=== PATIENT | female | born 1940 | race Caucasian/White ===

== ENCOUNTER 2016-05-15 20:00 | Emergency (ER) | payer OTHER ==
[2016-05-15 20:15] VITALS: BP 152/72; PULSE 100; TEMP 97.5; BMI 33.3
--- NOTE | 2016-05-15 20:22 | PDOC ---
[id number]: No Limitations - History of Present Illness Initial Comments: 05/15/16 21:00 The patient is a 76-year-old female (compliant with medications) with a significant past medical history of diabetes, hypertension, GERD, hypercholesterolemia, and presents to the emergency department with palpitations , abdominal bloating, and dizziness tonight. The patient reports her heart was racing (120 bpm). She reports abdominal bloating and a lot of gas retention. She reports episodes of dizziness since two days ago. Her last bowel movement occurred this morning. She states she is eating normally. The patient denies shortness of breath and headache. The patient denies fever, chills, abdominal pain, nausea, vomit, diarrhea and constipation. The patient denies dysuria, frequency, urgency and hematuria. Allergies: NKDA Social History: No toxic habits PCP: Dr. Abilio Navarrete <Ximena Mai - Last Filed: 05/15/16 21:00> <Marisa Ruiz - Last Filed: 05/16/16 01:58> - General Chief Complaint: Lightheaded Stated Complaint: CHEST PAIN Time Seen by Provider: 05/15/16 20:21 Past History <Ximena Mai - Last Filed: 05/15/16 21:00> - Past Medical History Anemia: No Asthma: No Cancer: No Cardiac Disorders: No CVA: No COPD: No CHF: No Diabetes: Yes GI Disorders: No Disorders: No HTN: Yes Hypercholesterolemia: Yes Liver Disease: No Seizures: No Thyroid Disease: Yes - Immunization History Immunization Up to Date: Yes - Psycho/Social/Smoking Cessation Hx Suicidal Ideation: No Smoking Status: No Smoking History: Never smoked Number of Cigarettes Smoked Daily: 0 Hx Alcohol Use: No Drug/Substance Use Hx: No Substance Use Type: None Hx Substance Use Treatment: No <Marisa Ruiz - Last Filed: 05/16/16 01:58> - Past Medical History Allergies/Adverse Reactions: Allergies Allergy/AdvReac Type Severity Reaction Status Date / Time No Known Allergies Allergy Verified 05/15/16 20:13 Home Medications: Ambulatory Orders Lubiprostone [Amitiza] 8 mcg PO DAILY #0 capsule 05/05/12 Methimazole 10 mg PO DAILY #0 tablet 05/05/12 Aspirin Coated [Ecotrin -] 81 mg PO ASDIR 01/15/16 Atorvastatin Ca [Lipitor] 20 mg PO HS 01/15/16 Canagliflozin [Invokana] 100 mg PO DAILY 01/15/16 Esomeprazole Magnesium [Nexium 24Hr] 40 mg PO DAILY 01/15/16 Insulin Glargine,Hum.rec.anlog [Bridget Murphy] 35 unit SQ AM 01/15/16 Review of Systems - Review of Systems Able to Perform ROS?: Yes Comments:: 05/15/16 21:01 CONSTITUTIONAL: Absent: fever, chills, diaphoresis, generalized weakness, malaise, loss of appetite HEENT: Absent: rhinorrhea, nasal congestion, throat pain, throat swelling, difficulty swallowing, mouth swelling, ear pain, eye pain, visual changes CARDIOVASCULAR: Present: (+) palpitations (+) dizziness Absent: chest pain, syncope, peripheral edema RESPIRATORY: Absent: cough, shortness of breath, dyspnea with exertion, orthopnea, wheezing, stridor, hemoptysis GASTROINTESTINAL: Present: (+) abdominal bloating Absent: abdominal pain, nausea, vomiting, diarrhea, constipation, melena, hematochezia GENITOURINARY: Absent: dysuria, frequency, urgency, hesitancy, hematuria, flank pain, genital pain MUSCULOSKELETAL: Absent: myalgia, arthralgia, joint swelling SKIN: Absent: rash, itching, pallor HEMATOLOGIC/IMMUNOLOGIC: Absent: easy bleeding, easy bruising, lymphadenopathy, frequent infections ENDOCRINE: Absent: unexplained weight gain, unexplained weight loss, heat intolerance, cold intolerance NEUROLOGIC: Absent: headache, focal weakness or paresthesias, unsteady gait, seizure, mental status changes, bladder or bowel incontinence PSYCHIATRIC: Absent: anxiety, depression, suicidal or homicidal ideation, hallucinations. <Ximena Mai - Last Filed: 05/15/16 21:00> *Physical Exam - Vital Signs Last Vital Signs Temp Pulse Resp BP Pulse Ox 97.5 F L 100 H 20 152/72 98 05/15/16 20:00 05/15/16 20:00 05/15/16 20:00 05/15/16 20:00 05/15/16 20:00 - Physical Exam Comments: 05/15/16 21:01 GENERAL: Well developed, well nourished. Awake and alert. No acute distress. HEENT: Normocephalic, atraumatic. PERRLA, EOMI. No conjunctival pallor. Sclera are non- icteric. Moist mucous membranes. Oropharynx is clear. NECK: Supple. Full ROM. No JVD. Carotid pulses 2+ and symmetric, without bruits. No thyromegaly. No lymphadenopathy. CARDIOVASCULAR: Regular rate and rhythm. No murmurs, rubs, or gallops. Distal pulses are 2+ and symmetric. PULMONARY: No evidence of respiratory distress. Lungs clear to auscultation bilaterally. No wheezing, rales or rhonchi. ABDOMINAL: (+) Belly is gassy. Soft. Non-tender. No rebound or guarding. No organomegaly. Normoactive bowel sounds. MUSCULOSKELETAL Normal range of motion at all joints. No bony deformities or tenderness. No CVA tenderness. EXTREMITIES: No cyanosis. No clubbing. No edema. No calf tenderness. SKIN: Warm and dry. Normal capillary refill. No rashes. No jaundice. NEUROLOGICAL: Alert, awake, appropriate. Cranial nerves 2-12 intact. No deficits to light touch and temperature in face, upper extremities and lower extremities. No motor deficits in the in face, upper extremities and lower extremities. Normoreflexic in the upper and lower extremities. Normal speech. Toes are down- going bilaterally. Gait is normal without ataxia. PSYCHIATRIC: Cooperative. Good eye contact. Appropriate mood and affect. <Ximena Mai - Last Filed: 05/15/16 21:00> - Vital Signs Last Vital Signs Temp Pulse Resp BP Pulse Ox 97.5 F L 100 H 20 152/72 98 05/15/16 20:00 05/15/16 20:00 05/15/16 20:00 05/15/16 20:00 05/15/16 20:00 <Marisa Ruiz - Last Filed: 05/16/16 01:58> ED Treatment Course - LABORATORY CBC & Chemistry Diagram: 05/15/16 20:30 05/15/16 20:30 - ADDITIONAL ORDERS Additional order review: Laboratory Results 05/15/16 20:30 INR 0.96 05/15/16 20:30 RBC 4.70 MCV 82.7 MCHC 33.3 RDW 13.7 MPV 8.4 Neutrophils % 60.8 D Lymphocytes % 29.6 D Monocytes % 7.1 Eosinophils % 1.5 Basophils % 1.0 - Medications Given in the ED: ED Medications Discontinued Medications Generic Name Dose Route Start Last Admin Trade Name Cyril PRN Reason Stop Dose Admin Al Hydroxide/Mg Hydroxide 30 ml 05/15/16 20:34 05/15/16 20:38 Mylanta Oral Suspension - PO 05/15/16 20:35 30 ml ONCE ONE Administration Aspirin 162 mg 05/15/16 20:25 05/15/16 20:38 Asa - PO 05/15/16 20:26 162 mg ONCE ONE Administration <Ximena Mai - Last Filed: 05/15/16 21:00> - LABORATORY CBC & Chemistry Diagram: 05/15/16 20:30 05/15/16 20:30 <Marisa Ruiz - Last Filed: 05/16/16 01:58> Medical Decision Making - Medical Decision Making 05/15/16 20:47 cxr: same as old; boot shaped heart; poor inspiration 05/16/16 01:57 Pt came with CP and epigastric pain. Her abdomen is full of gas. She will be treated with simethicone. Labs normal, CXR normal, and EKG normal. She will be sent home with PMD follow up. <Marisa Ruiz - Last Filed: 05/16/16 01:58> *DC/Admit/Observation/Transfer - Attestations Scribe Attestion: 05/15/16 21:01 Documentation prepared by Ximena Mai, acting as medical field representative for Marisa Ruiz MD. <Ximena Mai - Last Filed: 05/15/16 21:00> - Discharge Dispostion Admit: No <Marisa Ruiz - Last Filed: 05/16/16 01:58> Diagnosis at time of Disposition: Gas pain - Discharge Dispostion Disposition: HOME Condition at time of disposition: Stable - Referrals Referrals: Abilio Navarrete MD [Primary Care Provider] - - Patient Instructions Printed Discharge Instructions: How to Avoid Gas, Avoiding Gas-producing Foods
[2016-05-15] MEDS ORDERED: ASPIRIN 81 MG CHEWABLE TABLETS PO ONE (20:25)
[2016-05-15] MEDS ORDERED: MAG HYDROX/AL HYDROX/SIMETH 30 ML UNIT-DOSE CUP PO ONE (20:34)
[2016-05-15] MEDS ORDERED: SIMETHICONE 40 MG/0.6 ML BOTTLE PO PRN (20:34)
[2016-05-15] MEDS ORDERED: ASPIRIN 81 MG CHEWABLE TABLETS ONE (20:36)
[2016-05-15] MEDS ORDERED: MAG HYDROX/AL HYDROX/SIMETH 30 ML UNIT-DOSE CUP ONE (20:36)
[2016-05-15 20:40] LABS: EOSINOPHIL 1.5 % (0-4.5); MCH 27.6 pg (25.7-33.7); MCHC 33.3 g/dl (32.0-36.0); MEAN CELL VOLUME 82.7 fl (80-96); MEAN PLT VOLUME 8.4 fl (7.5-11.1); NEUTROPHILS 60.8 % (42.8-82.8); PLATELET COUNT 269 K/MM3 (134-434); RDW 13.7 % (11.6-15.6); WHITE BLOOD COUNT 9.5 K/mm3 (4.0-10.0)
[2016-05-15 20:53] LABS: INR 0.96 (0.82-1.09); PROTHROMBIN TIME (PATIENT) 10.5 SEC (9.98-11.88)
--- NOTE | 2016-05-15 20:54 | EKG ---
Test Reason : Blood Pressure : / mmHG Vent. 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
[2016-05-15 21:03] LABS: ALBUMIN 3.8 g/dl (3.4-5.0); ANION GAP 9 (8-16); BILIRUBIN,TOTAL 0.4 mg/dL (0.2-1.0); CO2 27 mmol/L (21-32); GLUCOSE,RANDOM 169 mg/dL (74-106); SGOT/AST 12 U/L (15-37); SGPT/ALT 20 U/L (12-78); TOT PROT 7.1 g/dl (6.4-8.2)
[2016-05-15 21:05] LABS: ALK PHOS 59 U/L (45-117); TROPONIN I < 0.02 ng/ml (0.00-0.05)
== END 2016-05-15 21:33 | disposition home or self-care (01) ==
LOC: JER 20:00
DX: R14.1 Gas pain (principal); I10 Essential (primary) hypertension; E11.9 Type 2 diabetes mellitus without complications; Z79.4 Long term (current) use of insulin; E78.00 Pure hypercholesterolemia, unspecified
CPT/HCPCS: 36415; 71010-TC; 80053; 82550; 84484; 85025; 85610; 93005; 93010; 99283-25

== ENCOUNTER → 2017-07-19 | Day surgery (SDC) | payer OTHER ==
--- NOTE | 2017-07-20 12:58 | PATH ---
Cytology Non-Gynecological Report Patient Name: [facility]. Rec. #: [id number] /Age/Gender: 1940 (Age: 77) / F Account: [id number] Location: RADIOLOGY Taken: 07/19/2017 Received: 07/19/2017 Reported: 07/20/2017 Physicians: Maryjane Cardenas M.D. Specimen(s) Received LEFT THYROID FNA Clinical History Left thyroid nodule, 1.97 x 1.11 x 1.28 cm Final Diagnosis THYROID, LEFT, FINE NEEDLE ASPIRATION: SATISFACTORY FOR EVALUATION. BETHESDA CLASS II: BENIGN. CYTOLOGIC FINDINGS ARE CONSISTENT WITH A BENIGN FOLLICULAR NODULE. SMALL FOLLICULAR CELLS, RARE MACROPHAGES AND RARE LYMPHOCYTES IN THE BACKGROUND OF COLLOID PRESENT. Electronically Signed Gini Lozada M.D. Gross Description Received are eight direct smears, four of which are air-dried and Diff-Quik stained, and four of which are alcohol fixed and Pap stained. Also received is 20 ml of bloody formalin from which one cellblock is prepared.
== END | disposition home or self-care (01) ==
LOC: JRADIR 09:15
PROVIDERS: ATTEND Internal Medicine Endocrinology, Diabetes & Metabolism
PROC: 0G9G3ZX Drainage of Left Thyroid Gland Lobe, Percutaneous Approach, Diagnostic (ICD-10-PCS; principal; 2017-07-19)
DX: E04.1 Nontoxic single thyroid nodule (principal)
CPT/HCPCS: 36415; 76942; 80053; 80061; 81003; 83036; 83721; 84439; 84443; 85025; 85610; 85730; 88173; 88305-TC

== ENCOUNTER 2021-01-04 09:24 | Emergency (ER) | payer OTHER ==
[2021-01-04 09:53] VITALS: TEMP 97; BMI 32.8
[2021-01-04] MEDS ORDERED: morphine CARPU-JECT 2 MG/1 ML DISP.SYRIN IVPUSH ONE (10:54)
[2021-01-04] MEDS ORDERED: ONDANSETRON 4 MG/2 ML VIAL IVPUSH ONE (10:54)
[2021-01-04] MEDS ORDERED: SODIUM CHLORIDE 500 ML IV STA (10:55)
[2021-01-04] MEDS ORDERED: ONDANSETRON 4 MG/2 ML VIAL ONE (12:54)
[2021-01-04] MEDS ORDERED: morphine SULFATE 4 MG/ML VIAL ONE (12:54)
[2021-01-04 13:17] LABS: EPI CELLS 6 /uL (0-25.1); HYALINE CASTS 0 /uL (0-3.1); PH,URINE 7.5 (5.0-8.0); URINE APPEARANCE CLEAR; URINE BACTERIA 6 /uL (0-1359); URINE BILIRUBIN NEGATIVE (NEGATIVE); URINE COLOR YELLOW; URINE GLUCOSE (UA) NEGATIVE (NEGATIVE); URINE KETONE NEGATIVE (NEGATIVE); URINE LEUK ESTERASE TRACE (NEGATIVE); URINE NITRITE NEGATIVE (NEGATIVE); URINE PROTEIN NEGATIVE (NEGATIVE); URINE RBC 6 /uL (0-23.9); URINE UROBILINOGEN 0.2 mg/dL (0.2-1.0); URINE WBC 9 /uL (0-25.8)
[2021-01-04 13:48] LABS: ALBUMIN 3.5 g/dl (3.4-5.0); BLOOD UREA NITROGEN 16.3 mg/dL (7-18); CALCIUM 8.9 mg/dL (8.5-10.1)
[2021-01-04 13:52] LABS: BILIRUBIN,TOTAL 0.5 mg/dL (0.2-1); TOT PROT 7.3 g/dl (6.4-8.2)
[2021-01-04 15:10] LABS: BASO % 0.9 % (0-2.0); EOS % 0.8 % (0-4.5); HEMATOCRIT 36.8 % (32.4-45.2); HEMOGLOBIN 12.3 GM/dL (10.7-15.3); LYMPH % 31.1 % (8-40); MCH 27.9 pg (25.7-33.7); MCHC 33.4 g/dl (32.0-36.0); MEAN CELL VOLUME 83.8 fl (80-96); MEAN PLT VOLUME 8.7 fl (7.5-11.1); MONO % 5.8 % (3.8-10.2); NEUT % 61.4 % (42.8-82.8); PLATELET COUNT 275 10^3/uL (134-434); RBC 4.39 M/mm3 (3.60-5.2); RDW 14.1 % (11.6-15.6); WHITE BLOOD COUNT 7.5 K/mm3 (4.0-10.0)
[2021-01-04 19:09] VITALS: BP 158/68; PULSE 82
== END 2021-01-04 19:09 | disposition home or self-care (01) ==
LOC: JER 09:24
PROC: 3E033NZ Introduction of Analgesics, Hypnotics, Sedatives into Peripheral Vein, Percutaneous Approach (ICD-10-PCS; principal; 2021-01-04)
PROC: 3E033GC Introduction of Other Therapeutic Substance into Peripheral Vein, Percutaneous Approach (ICD-10-PCS; 2021-01-04)
PROC: 3E0337Z Introduction of Electrolytic and Water Balance Substance into Peripheral Vein, Percutaneous Approach (ICD-10-PCS; 2021-01-04)
DX: M54.6 Pain in thoracic spine (principal)
CPT/HCPCS: 36415; 71275-TC; 80053; 81003; 85025; 85379; 87086; 99285-25; C9803; Q9967; U0003; U0005

== ENCOUNTER 2022-08-27 11:51 | Day surgery (SDC) | payer OTHER ==
[2022-08-27] MEDS ORDERED: FERRIC CARBOXYMALTOSE 750 MG in SODIUM CHLORIDE 250 ML IVPB ONE (12:30)
[2022-08-27 13:55] VITALS: BP 143/54; PULSE 74; RESP 18; TEMP 97.8
== END 2022-08-27 14:20 | disposition home or self-care (01) ==
LOC: FINFUSION 11:51 → FM/S 11:54 → FINFUSION 14:20
PROVIDERS: ATTEND Family Medicine
PROC: 3E033GC Introduction of Other Therapeutic Substance into Peripheral Vein, Percutaneous Approach (ICD-10-PCS; principal; 2022-08-27)
DX: D50.9 Iron deficiency anemia, unspecified (principal)
CPT/HCPCS: 96365; J1439

== ENCOUNTER 2022-09-03 12:31 | Day surgery (SDC) | payer OTHER ==
[2022-09-03] MEDS ORDERED: FERRIC CARBOXYMALTOSE 750 MG in SODIUM CHLORIDE 250 ML IVPB ONE (12:45)
[2022-09-03 12:58] VITALS: RESP 18; TEMP 98.2
[2022-09-03 14:13] VITALS: BP 146/58; PULSE 63
== END 2022-09-03 13:14 | disposition home or self-care (01) ==
LOC: FINFUSION 12:31 → FM/S 12:32 → FINFUSION 13:14
PROVIDERS: ATTEND Family Medicine
PROC: 3E033GC Introduction of Other Therapeutic Substance into Peripheral Vein, Percutaneous Approach (ICD-10-PCS; principal; 2022-09-03)
DX: D50.9 Iron deficiency anemia, unspecified (principal); E61.1 Iron deficiency
CPT/HCPCS: 96365; J1439

== ENCOUNTER 2022-11-07 14:05 | Emergency (ER) | payer OTHER ==
[2022-11-07 15:11] VITALS: RESP 20; BMI 35.9
[2022-11-07 15:51] LABS: BASO % 0.9 % (0-2.0); HEMATOCRIT 39.9 % (32.4-45.2); HEMOGLOBIN 13.5 GM/dL (10.7-15.3); LYMPH % 34.4 % (8-40); MCH 28.1 pg (25.7-33.7); MCHC 33.9 g/dl (32.0-36.0); MEAN CELL VOLUME 82.9 fl (80-96); MEAN PLT VOLUME 7.9 fl (7.5-11.1); NEUT % 54.7 % (42.8-82.8); PLATELET COUNT 325 10^3/uL (134-434); RBC 4.82 M/mm3 (3.60-5.2); RDW 14.4 % (11.6-15.6)
[2022-11-07 15:56] LABS: INR 0.94 (0.83-1.09); PROTHROMBIN TIME (PATIENT) 10.9 SEC (9.7-13.0)
[2022-11-07 16:21] LABS: POTASSIUM 4.6 mmol/L (3.5-5.1)
[2022-11-07 16:24] LABS: ALBUMIN 3.4 g/dl (3.4-5.0); BLOOD UREA NITROGEN 18.2 mg/dL (7-18); CALCIUM 9.2 mg/dL (8.5-10.1); MAGNESIUM 1.8 mg/dL (1.8-2.4)
[2022-11-07 16:27] LABS: CREATININE 1.2 mg/dL (0.55-1.3); PHOSPHOROUS 3.7 mg/dL (2.5-4.9)
[2022-11-07 16:29] LABS: BILIRUBIN,TOTAL 0.4 mg/dL (0.2-1); TOT PROT 6.8 g/dl (6.4-8.2)
[2022-11-07 17:04] LABS: EPI CELLS >36 /uL (0-25.1); HYALINE CASTS 0 /uL (0-3.1); PH,URINE 6.5 (5.0-8.0); URINE APPEARANCE CLEAR; URINE BACTERIA 1354 /uL (0-1359); URINE BILIRUBIN NEGATIVE (NEGATIVE); URINE COLOR YELLOW; URINE GLUCOSE (UA) NEGATIVE (NEGATIVE); URINE KETONE NEGATIVE (NEGATIVE); URINE LEUK ESTERASE 2+ (NEGATIVE); URINE NITRITE NEGATIVE (NEGATIVE); URINE PROTEIN NEGATIVE (NEGATIVE); URINE RBC 7 /uL (0-23.9); URINE WBC 174 /uL (0-25.8)
[2022-11-07 18:17] VITALS: BP 124/60; PULSE 68; TEMP 97.8
[2022-11-08 13:33] LABS: N-TERMINAL BNP 473.1 pg/ml (5-450)
== END 2022-11-07 18:20 | disposition home or self-care (01) ==
LOC: JER 14:05
DX: R06.02 Shortness of breath (principal); R53.1 Weakness; Z20.822 Contact with and (suspected) exposure to COVID-19
CPT/HCPCS: 0241U-QW; 36415; 71045-TC-FY; 80053; 81003; 82550; 82962; 83735; 83880; 84100; 84439; 84443; 84484; 85025; 85610; 85730; 87086; 93005; 93010; 99285-25

== ENCOUNTER 2023-04-05 22:32 | Inpatient (IN) | payer OTHER ==
[2023-04-05] MEDS ORDERED: methylPREDNISolone NA SUCC 125 MG/2 ML VIAL IVPUSH ONE (23:29)
[2023-04-05] MEDS ORDERED: methylPREDNISolone NA SUCC 125 MG/2 ML VIAL ONE (23:42)
[2023-04-05] MEDS: ALBUTEROL SO4 2.5/IPRATROPIUM 0.5 INH SOL 3 ML VIAL.NEB. NEB SCH (23:44)
[2023-04-06] MEDS: ALBUTEROL SO4 2.5/IPRATROPIUM 0.5 INH SOL 3 ML VIAL.NEB. NEB SCH ×3 (00:05→00:10)
[2023-04-06] MEDS ORDERED: AZITHROMYCIN IVPB 500 MG in DEXTROSE 5%-WATER - 250 ML IVPB ONE (00:21)
[2023-04-06] MEDS ORDERED: CEFTRIAXONE 1,000 MG in DEXTROSE 5%-WATER - 50 ML IVPB ONE (00:21)
[2023-04-06] MEDS ORDERED: CEFTRIAXONE 1 GM/50 ML BAG ONE (00:27)
[2023-04-06 00:34] LABS: BASO % 0.6 % (0-2.0); EOS % 1.6 % (0-4.5); HEMATOCRIT 38.3 % (32.4-45.2); HEMOGLOBIN 12.5 GM/dL (10.7-15.3); MCH 28.5 pg (25.7-33.7); MCHC 32.8 g/dl (32.0-36.0); MEAN CELL VOLUME 86.9 fl (80-96); MEAN PLT VOLUME 8.4 fl (7.5-11.1); MONO % 7.3 % (3.8-10.2); NEUT % 78.5 % (42.8-82.8); PLATELET COUNT 268 10^3/uL (134-434); RBC 4.41 M/mm3 (3.60-5.2); RDW 12.7 % (11.6-15.6); WHITE BLOOD COUNT 10.6 K/mm3 (4.0-10.0)
[2023-04-06 00:39] LABS: VENOUS BASE EXCESS 1.4 mmol/L (-2-2); VENOUS O2 SATURATION 61.3 % (70-80); VENOUS PCO2 45.2 mmHg (38-52); VENOUS PH 7.39 (7.310-7.410)
[2023-04-06 00:40] LABS: INR 1.06 (0.83-1.09); PROTHROMBIN TIME (PATIENT) 12.3 SEC (9.7-13.0)
[2023-04-06 00:42] LABS: ACTIVATED PTT 28.7 SECONDS (25.2-36.5)
[2023-04-06] MEDS ORDERED: AZITHROMYCIN IVPB 500 MG/250 ML BAG IVPB ONE (00:55)
[2023-04-06 01:00] LABS: POTASSIUM 4.4 mmol/L (3.5-5.1)
[2023-04-06 01:01] LABS: CALCIUM 8.9 mg/dL (8.5-10.1)
[2023-04-06 01:02] LABS: ALBUMIN 3.2 g/dl (3.4-5.0); BLOOD UREA NITROGEN 12.8 mg/dL (7-18); MAGNESIUM 1.7 mg/dL (1.8-2.4)
[2023-04-06 01:06] LABS: CREATININE 0.8 mg/dL (0.55-1.3)
[2023-04-06 01:07] LABS: BILIRUBIN,TOTAL 0.5 mg/dL (0.2-1); TOT PROT 6.4 g/dl (6.4-8.2)
[2023-04-06 01:10] LABS: N-TERMINAL BNP 933.1 pg/ml (5-450)
[2023-04-06] MEDS ORDERED: MAGNESIUM 1GM/D5W 100ML - 100 ML IVPB IVPB STA (01:23)
[2023-04-06] MEDS ORDERED: FUROSEMIDE 40 MG/4 ML INJECTABLE VIAL ONE (01:27)
[2023-04-06] MEDS ORDERED: MAGNESIUM 1GM/D5W - 1 GM/100 ML IVPB IVPB ONE (01:27)
[2023-04-06] MEDS ORDERED: FUROSEMIDE 40 MG/4 ML INJECTABLE VIAL IVPUSH STA (01:27)
[2023-04-06] MEDS ORDERED: FUROSEMIDE 40 MG/4 ML INJECTABLE VIAL IVPUSH ONE (01:32)
[2023-04-06 02:31] LABS: EPI CELLS 9 /uL (0-25.1); HYALINE CASTS 1 /uL (0-3.1); URINE APPEARANCE CLEAR; URINE BACTERIA 50 /uL (0-1359); URINE BILIRUBIN NEGATIVE (NEGATIVE); URINE COLOR YELLOW; URINE GLUCOSE (UA) NEGATIVE (NEGATIVE); URINE KETONE NEGATIVE (NEGATIVE); URINE LEUK ESTERASE 1+ (NEGATIVE); URINE NITRITE NEGATIVE (NEGATIVE); URINE PROTEIN NEGATIVE (NEGATIVE); URINE RBC 14 /uL (0-23.9); URINE UROBILINOGEN 0.2 mg/dL (0.2-1.0); URINE WBC 16 /uL (0-25.8)
[2023-04-06 04:31] VITALS: BMI 35.2
[2023-04-06] MEDS ORDERED: methylPREDNISolone NA SUCC 40 MG/1 ML VIAL IVPUSH SCH (09:00)
[2023-04-06] MEDS: FUROSEMIDE 40 MG/4 ML INJECTABLE VIAL IVPUSH SCH (09:42)
[2023-04-06] MEDS ORDERED: FUROSEMIDE 40 MG/4 ML INJECTABLE VIAL IVPUSH SCH (10:00)
[2023-04-06 10:08] LABS: HEMATOCRIT 39.9 % (32.4-45.2); HEMOGLOBIN 13.9 GM/dL (10.7-15.3); MCH 29.9 pg (25.7-33.7); MCHC 34.7 g/dl (32.0-36.0); MEAN CELL VOLUME 86.1 fl (80-96); MEAN PLT VOLUME 8.3 fl (7.5-11.1); PLATELET COUNT 304 10^3/uL (134-434); RBC 4.63 M/mm3 (3.60-5.2); RDW 12.9 % (11.6-15.6); WHITE BLOOD COUNT 7.6 K/mm3 (4.0-10.0)
[2023-04-06 10:20] LABS: CHLORIDE 95 mmol/L (98-107); POTASSIUM 4.3 mmol/L (3.5-5.1); SODIUM 134 mmol/L (136-145)
[2023-04-06 10:28] LABS: CALCIUM 9.2 mg/dL (8.5-10.1)
[2023-04-06 10:29] LABS: ANION GAP 13 mmol/L (4-13); BLOOD UREA NITROGEN 14.4 mg/dL (7-18); CO2 26 mmol/L (21-32)
[2023-04-06] MEDS: METHIMAZOLE 10 MG TABLET PO SCH (10:30)
[2023-04-06 10:33] LABS: CREATININE 1.1 mg/dL (0.55-1.3)
[2023-04-06 10:49] LABS: GLUCOSE,RANDOM 440 mg/dL (74-106)
[2023-04-06] MEDS ORDERED: ASPIRIN 81 MG CHEWABLE TABLETS PO ONE (11:05)
[2023-04-06 11:19] LABS: ANISOCYTOSIS 0; HELMET CELLS 0; HOWELL-JOLLY BODIES 0; MACROCYTOSIS 0; OVALOCYTE 0; ROULEAU 0; SICKELED CELLS 0; TARGET CELLS 0; TEAR DROP CELLS 0; TOXIC GRANULATION 0
[2023-04-06] MEDS: INSULIN ASPART SLIDING SCALE (NOVOLOG) 1 VIAL SQ SCH ×4 (11:40→21:47)
[2023-04-06] MEDS ORDERED: levETIRAcetam 500 MG/5 ML INJECTION VIAL IVPB ONE (12:30)
[2023-04-06] MEDS ORDERED: INSULIN (LEVEMIR) 100 UNITS/ML UNITS SQ ONE (12:30)
[2023-04-06] MEDS: methylPREDNISolone NA SUCC 40 MG/1 ML VIAL IVPUSH SCH (18:22)
[2023-04-06] MEDS: ATORVASTATIN CA 20 MG TABLET (FP) PO SCH (21:48)
[2023-04-06] MEDS ORDERED: INSULIN (LEVEMIR) 100 UNITS/ML UNITS SQ SCH (22:00)
[2023-04-06] MEDS ORDERED: ATORVASTATIN CA 20 MG TABLET (FP) PO SCH (22:00)
[2023-04-07] MEDS: methylPREDNISolone NA SUCC 40 MG/1 ML VIAL IVPUSH SCH (01:58)
[2023-04-07] MEDS: INSULIN ASPART SLIDING SCALE (NOVOLOG) 1 VIAL SQ SCH ×6 (06:05→23:17)
[2023-04-07] MEDS ORDERED: INSULIN (LEVEMIR) 100 UNITS/ML UNITS SQ SCH ×3 (07:00→22:00)
[2023-04-07] MEDS: ASPIRIN COATED 81 MG TABLET.EC PO SCH (09:56)
[2023-04-07] MEDS: levETIRAcetam 250 MG TABLET PO SCH ×2 (09:56→23:00)
[2023-04-07] MEDS: METHIMAZOLE 10 MG TABLET PO SCH (09:56)
[2023-04-07] MEDS: FUROSEMIDE 40 MG/4 ML INJECTABLE VIAL IVPUSH SCH (10:00)
[2023-04-07] MEDS ORDERED: AZITHROMYCIN IVPB 500 MG/250 ML BAG IVPB SCH (10:00)
[2023-04-07] MEDS ORDERED: methylPREDNISolone NA SUCC 40 MG/1 ML VIAL IVPUSH SCH (10:00)
[2023-04-07] MEDS ORDERED: CEFTRIAXONE 1 GM in DEXTROSE 5%-WATER - 50 ML IVPB SCH (10:00)
[2023-04-07] MEDS: ATORVASTATIN CA 20 MG TABLET (FP) PO SCH (23:00)
[2023-04-08] MEDS: INSULIN ASPART SLIDING SCALE (NOVOLOG) 1 VIAL SQ SCH ×4 (06:37→22:11)
[2023-04-08] MEDS: METHIMAZOLE 10 MG TABLET PO SCH (09:24)
[2023-04-08] MEDS: methylPREDNISolone NA SUCC 40 MG/1 ML VIAL IVPUSH SCH (09:24)
[2023-04-08] MEDS: FUROSEMIDE 40 MG/4 ML INJECTABLE VIAL IVPUSH SCH (09:24)
[2023-04-08] MEDS: levETIRAcetam 250 MG TABLET PO SCH ×2 (09:24→22:00)
[2023-04-08] MEDS: ASPIRIN COATED 81 MG TABLET.EC PO SCH (09:24)
[2023-04-08] MEDS: INSULIN (NOVOLOG MIX 70/30) 100 UNITS/ML MDV SQ SCH ×2 (09:43→17:21)
[2023-04-08] MEDS ORDERED: AZITHROMYCIN IVPB 500 MG/250 ML BAG IVPB SCH (10:00)
[2023-04-08] MEDS ORDERED: methylPREDNISolone NA SUCC 1000 MG/8 ML VIAL IVPB ONE (18:30)
[2023-04-08] MEDS ORDERED: FUROSEMIDE 40 MG/4 ML INJECTABLE VIAL IVPUSH ONE (18:30)
[2023-04-08] MEDS: ATORVASTATIN CA 20 MG TABLET (FP) PO SCH (21:59)
[2023-04-09] MEDS: INSULIN ASPART SLIDING SCALE (NOVOLOG) 1 VIAL SQ SCH ×5 (07:16→21:55)
[2023-04-09] MEDS: METHIMAZOLE 10 MG TABLET PO SCH (10:30)
[2023-04-09] MEDS: FUROSEMIDE 40 MG/4 ML INJECTABLE VIAL IVPUSH SCH (10:30)
[2023-04-09] MEDS: methylPREDNISolone NA SUCC 40 MG/1 ML VIAL IVPUSH SCH (10:30)
[2023-04-09] MEDS: ASPIRIN COATED 81 MG TABLET.EC PO SCH (10:30)
[2023-04-09] MEDS: levETIRAcetam 250 MG TABLET PO SCH ×2 (10:30→21:02)
[2023-04-09] MEDS: ALBUTEROL SO4 2.5/IPRATROPIUM 0.5 INH SOL 3 ML VIAL.NEB. NEB SCH ×2 (15:35→20:35)
[2023-04-09] MEDS: INSULIN (NOVOLOG MIX 70/30) 100 UNITS/ML MDV SQ SCH (17:05)
[2023-04-09] MEDS: ATORVASTATIN CA 20 MG TABLET (FP) PO SCH (21:02)
[2023-04-10] MEDS: INSULIN (NOVOLOG MIX 70/30) 100 UNITS/ML MDV SQ SCH ×2 (06:13→17:33)
[2023-04-10] MEDS: INSULIN ASPART SLIDING SCALE (NOVOLOG) 1 VIAL SQ SCH ×4 (06:13→21:27)
[2023-04-10] MEDS ORDERED: INSULIN ASPART SLIDING SCALE (NOVOLOG) 1 VIAL SQ ONE (06:17)
[2023-04-10] MEDS: ALBUTEROL SO4 2.5/IPRATROPIUM 0.5 INH SOL 3 ML VIAL.NEB. NEB SCH ×4 (08:00→19:35)
[2023-04-10] MEDS: ASPIRIN COATED 81 MG TABLET.EC PO SCH (10:03)
[2023-04-10] MEDS: FUROSEMIDE 40 MG/4 ML INJECTABLE VIAL IVPUSH SCH (10:03)
[2023-04-10] MEDS: methylPREDNISolone NA SUCC 40 MG/1 ML VIAL IVPUSH SCH (10:03)
[2023-04-10] MEDS: levETIRAcetam 250 MG TABLET PO SCH ×2 (10:03→21:27)
[2023-04-10] MEDS: METHIMAZOLE 10 MG TABLET PO SCH (10:04)
[2023-04-10 10:23] LABS: HEMATOCRIT 42.3 % (32.4-45.2); MCH 28.7 pg (25.7-33.7); MCHC 33.1 g/dl (32.0-36.0); MEAN CELL VOLUME 86.6 fl (80-96); MEAN PLT VOLUME 8.4 fl (7.5-11.1); PLATELET COUNT 364 10^3/uL (134-434); RBC 4.89 M/mm3 (3.60-5.2); RDW 12.8 % (11.6-15.6); WHITE BLOOD COUNT 14.2 K/mm3 (4.0-10.0)
[2023-04-10 10:28] LABS: POTASSIUM 3.7 mmol/L (3.5-5.1)
[2023-04-10 10:30] LABS: CALCIUM 9.2 mg/dL (8.5-10.1)
[2023-04-10 10:31] LABS: ALBUMIN 2.8 g/dl (3.4-5.0); BLOOD UREA NITROGEN 33.7 mg/dL (7-18)
[2023-04-10 10:34] LABS: CREATININE 0.9 mg/dL (0.55-1.3)
[2023-04-10 10:35] LABS: BILIRUBIN,TOTAL 0.4 mg/dL (0.2-1); TOT PROT 6.2 g/dl (6.4-8.2)
[2023-04-10] MEDS: ATORVASTATIN CA 20 MG TABLET (FP) PO SCH (21:27)
[2023-04-11] MEDS ORDERED: CALCIUM CARBONATE 650 MG TABLET PO ONE ×2 (00:20→00:21)
[2023-04-11 01:41] LABS: N-TERMINAL BNP 669.1 pg/ml (5-450)
[2023-04-11] MEDS ORDERED: INSULIN (NOVOLOG MIX 70/30) 100 UNITS/ML MDV SQ ONE ×2 (03:28→06:27)
[2023-04-11] MEDS: INSULIN (NOVOLOG MIX 70/30) 100 UNITS/ML MDV SQ SCH ×2 (06:05→17:24)
[2023-04-11] MEDS: INSULIN ASPART SLIDING SCALE (NOVOLOG) 1 VIAL SQ SCH ×4 (06:06→21:45)
[2023-04-11] MEDS ORDERED: INSULIN ASPART SLIDING SCALE (NOVOLOG) 1 VIAL SQ ONE (06:27)
[2023-04-11] MEDS: ALBUTEROL SO4 2.5/IPRATROPIUM 0.5 INH SOL 3 ML VIAL.NEB. NEB SCH ×4 (08:40→20:53)
[2023-04-11] MEDS: ASPIRIN COATED 81 MG TABLET.EC PO SCH (10:29)
[2023-04-11] MEDS: levETIRAcetam 250 MG TABLET PO SCH ×2 (10:29→21:45)
[2023-04-11] MEDS: methylPREDNISolone NA SUCC 40 MG/1 ML VIAL IVPUSH SCH (10:29)
[2023-04-11] MEDS: FUROSEMIDE 40 MG/4 ML INJECTABLE VIAL IVPUSH SCH (10:29)
[2023-04-11] MEDS: METHIMAZOLE 10 MG TABLET PO SCH (10:29)
[2023-04-11 14:13] LABS: GLUCOSE,RANDOM 535 mg/dL (74-106)
[2023-04-11] MEDS: ATORVASTATIN CA 20 MG TABLET (FP) PO SCH (21:45)
[2023-04-12 03:34] VITALS: RESP 18
[2023-04-12] MEDS: INSULIN (NOVOLOG MIX 70/30) 100 UNITS/ML MDV SQ SCH ×2 (06:19→16:26)
[2023-04-12] MEDS: INSULIN ASPART SLIDING SCALE (NOVOLOG) 1 VIAL SQ SCH ×3 (06:19→16:28)
[2023-04-12] MEDS: ALBUTEROL SO4 2.5/IPRATROPIUM 0.5 INH SOL 3 ML VIAL.NEB. NEB SCH ×4 (08:53→20:31)
[2023-04-12] MEDS: ASPIRIN COATED 81 MG TABLET.EC PO SCH (09:39)
[2023-04-12] MEDS: levETIRAcetam 250 MG TABLET PO SCH (09:39)
[2023-04-12] MEDS: METHIMAZOLE 10 MG TABLET PO SCH (09:39)
[2023-04-12] MEDS: FUROSEMIDE 40 MG/4 ML INJECTABLE VIAL IVPUSH SCH (09:45)
[2023-04-12 19:25] VITALS: BP 112/64; PULSE 107; TEMP 98.5
== END 2023-04-12 21:41 | disposition home health service (06) | DRG 291 ==
LOC: JER 22:32 → JERBED 04-06 01:28 → J5S 04-06 03:39
PROVIDERS: ADMIT Internal Medicine; ATTEND Family Medicine
DX: I11.0 Hypertensive heart disease with heart failure (principal); I50.31 Acute diastolic (congestive) heart failure; E87.1 Hypo-osmolality and hyponatremia; E03.9 Hypothyroidism, unspecified; E78.5 Hyperlipidemia, unspecified; K21.9 Gastro-esophageal reflux disease without esophagitis; R09.02 Hypoxemia; K59.00 Constipation, unspecified; E11.9 Type 2 diabetes mellitus without complications; G40.909 Epilepsy, unspecified, not intractable, without status epilepticus; E11.42 Type 2 diabetes mellitus with diabetic polyneuropathy; R41.82 Altered mental status, unspecified; R26.81 Unsteadiness on feet
CPT/HCPCS: 0241U-QW; 36415; 70450-TC; 70553-TC; 71045-TC-FY; 71250-TC; 80048; 80053; 81003; 82607; 82746; 82803; 82947; 82962; 83735; 83880; 84439; 84443; 84484; 85025; 85027; 85610; 85730; 87040; 87086; 87899; 93005; 93010; 93306-TC; 93880-TC; 94010; 94640; 94761; 97116-GP; 97161-GP; 99285-25